=== PATIENT | male | born 1960 | race Caucasian/White ===

== ENCOUNTER 2023-01-08 05:29 | Observation (INO) ==
--- NOTE | 2022-12-11 12:37 | PAT Medication Instructions ---
Medication Instructions Date of Service December 11, 2022 Home Medications amantadine HCl 100 mg capsule 100 mg PO TID carbidopa 25 mg-levodopa 100 mg tablet 1 tab PO QID pramipexole 1 mg tablet (Mirapex) 0.5 mg PO QID naproxen sodium 220 mg tablet (Aleve) 220 mg PO BID PRN Pain selegiline HCl 5 mg capsule 5 mg PO BID STOP taking 2 weeks before surgery naproxen sodium 220 mg tablet (Aleve) 220 mg PO BID PRN Pain selegiline HCl 5 mg capsule 5 mg PO BID ( must be stopped two weeks prior to surgery- please ask prescriber if this is acceptable) Take morning of surgery With a small sip of water, OTHERWISE NOTHING TO EAT OR DRINK AFTER MIDNIGHT: amantadine HCl 100 mg capsule 100 mg PO TID carbidopa 25 mg-levodopa 100 mg tablet 1 tab PO QID pramipexole 1 mg tablet (Mirapex) 0.5 mg PO QID Take evening before surgery amantadine HCl 100 mg capsule 100 mg PO TID carbidopa 25 mg-levodopa 100 mg tablet 1 tab PO QID pramipexole 1 mg tablet (Mirapex) 0.5 mg PO QID Other Notes If you have any questions please call us at [phone] or [phone] or [phone] or [phone]
--- NOTE | 2022-12-17 09:42 | Anesthesiology Consultation ---
Date of Service December 17, 2022 Assessment & Plan (1) Encounter for pre-operative examination: Chart Review Chart Review: Acceptable Risk for Surgery and Patient seen in Pre Admission Testing Pt in Parkinson study- on 12/22/22- patient having spinal tap done (wanted anesthesia to be aware) - Due to Parkinson's disease- patient is not an ideal OPJ candidate (currently scheduled as 23 hour obs) Per PAT appt on 12/17/22, patient recently in [place]- returned 12/13/22. Pt is vaccinated for Covid. Will leave to surgeon's discretion if preop Covid testing needed. Educated on importance of using Covid precautions one week prior to surgery PCP clearance request 11/27/2022 = "Yes" patient is medically cleared for surgery Consults Requested none Teaching & Discussion Pre-Anesthesia Teaching/Discussion Notes: Instructed NPO after midnight before surgery,except medications with 15 cc of water. Medication instructions provided according to the PAT guidelines. History Surgery Operation Date: 01/08/23 07:00 Proposed Procedures p Left Total Hip Arthroplasty - Rashard Villalba MD Height/Weight Height: 6 ft 1 in Weight: 76.2 kg Allergies Allergy/AdvReac Type Severity Reaction Status Date / Time No Known Allergies Allergy Verified 12/09/22 13:36 Medications Home Medications Medication Instructions Recorded Confirmed Last Taken amantadine HCl 100 mg capsule 100 mg PO TID 02/06/22 12/09/22 Unknown carbidopa 25 mg-levodopa 100 mg 1 tab PO QID 02/06/22 12/09/22 Unknown tablet pramipexole 1 mg tablet (Mirapex) 0.5 mg PO QID 02/06/22 12/09/22 Unknown naproxen sodium 220 mg tablet 220 mg PO BID PRN Pain 12/09/22 12/09/22 Unknown (Aleve) selegiline HCl 5 mg capsule 5 mg PO BID 12/09/22 12/09/22 Unknown Past Medical History Medical History History of COVID-19 home test positive - mild cold symptoms. No current issues Lipoma of flank Lipoma of left upper extremity Osteoarthritis Parkinson disease follows with Neurology Dr [place] [facility] stable - has tremors, stiffness Sleep apnea CPAP at night Exercise / Class Metabolic Activity II 4-5 Yardwork/Stairs/Walk up hill (one flight of stairs - no chest pain or SOB ) Past Family History Family History Father Cancer Other No family history of adverse response to anesthesia Past Surgical History Surgical History H/O colonoscopy History of appendectomy (1976) Past Anesthesia History No Hx of Anesthesia Complications and No Family Hx of Anesthesia Complications History of PONV No Hx of PONV and No Hx of Motion Sickness Social History Smoking Status: Never smoker Do You Dip or Chew Tobacco: No Hx Alcohol Use: Yes Alcohol type: beer and wine alcohol intake frequency: a few times a month Hx Substance Use: No Review of Systems Patient denies chest pain, shortness of breath, dyspnea on exertion, reflux, cough, wheezing, palpitations. No hx of seizures, stroke, DC, apnea/snoring. No hx of blood clots or blood transfusions Physical Exam Vital Signs VITALS BP 117/70 P 80 TEMP 97.5 SP02 97% RESP 16 Constitutional no acute distress ENMT Mouth: no TMJ clicking Thyromental Distance: > or= 3.5 Finger Breadths (4.0) Mallampati Class: II Missing side teeth [place] to molar Neck + limited neck extension Respiratory normal respiratory effort; no respiratory distress Auscultation: lungs clear to auscultation bilaterally; no wheezes Cardiovascular Rate/Rhythm: regular rate and regular rhythm Heart Sounds: no murmur Vessels: no carotid bruit Musculoskeletal Spine: no pain with cervical ROM Extremities: extremities normal to inspection Psychiatric Orientation: alert Dysarthria - mild Lab Results Anesthesia Preop Results Results Anesthesia Widget: WBC 5.98 K/ul (4.8-10.8) 12/17/22 Hgb 16.0 g/dl (14.0-18.0) 12/17/22 Hct 46.8 % (42.0-52.0) 12/17/22 Plt 207 K/uL (130-400) 12/17/22 Na 140 mmol/L (136-145) 12/17/22 K 4.1 mmol/L (3.5-5.1) 12/17/22 Cl 105 mmol/L (98-107) 12/17/22 CO2 30 mmol/L (21-32) 12/17/22 BUN 27 mg/dl (6-23) H 12/17/22 Creat 0.91 mg/dl (0.6-1.4) 12/17/22 Glucose Level 77 mg/dl (70-99(Fasting)) 12/17/22 PT 11.1 Seconds (9.0-12.0) 12/17/22 PTT 26.8 Seconds (21.0-31.0) 12/17/22 INR 1.0 (0.9-1.1) 12/17/22 Urine Color Yellow 12/17/22 Urine Appearance Clear (Clear) 12/17/22 Urine pH 7.0 (4.5-7.5) 12/17/22 Urine Specific [place] 1.028 (1.000-1.030) 12/17/22 Urine Protein Negative (Negative) 12/17/22 Urine Glucose (UA) Negative (Negative) 12/17/22 Urine Ketones Trace (Negative) H 12/17/22 Urine Blood Trace (Negative) H 12/17/22 Urine Nitrite Negative (Negative) 12/17/22 Urine Bilirubin Negative (Negative) 12/17/22 Urine Urobilinogen Negative (Negative) 12/17/22 Urine Leukocyte Esterase Negative (Negative) 12/17/22 Urine WBC (Auto) 1-5 /hpf (0-5) 12/17/22 Urine RBC (Auto) 5-10 /hpf (0-4) H 12/17/22 Urine Hyaline Casts (Auto) 0 /lpf (0-5) 12/17/22 Urine Epithelial Cells (Auto) 5-10 /lpf (0-5) H 12/17/22 Urine Bacteria (Auto) Negative (Negative) 12/17/22 Blood Type O Positive 12/17/22 Antibody Screen NEGATIVE 12/17/22 Testing Electrocardiogram Date: 12/17/22 Findings: + NSR @ (71bpm ) Normal EKG per cardio COVID-19 Risk Screen Screening Information COVID-19 Screen Date: 12/17/22 Exposure 21 Days Family/Household +COVID Last 21 Days: No Exposure 10 Days Any COVID Exposure Last 10 Days: No Symptoms Last 10 Days Experienced COVID Sx Last 10 Days: No + COVID 0-90 Days COVID + in Last 0-90 Days: No Risk Plan COVID Risk Plan: No Risk Identified Patient Education COVID Preop Screening Education Complete: Yes
--- NOTE | 2022-12-18 13:03 | History & Physical Report ---
Date of Service December 18, 2022 Assessment & Plan (1) Osteoarthritis of left hip: Plan: PRE-OP Diagnosis: Left hip osteoarthritis Planned Procedure: Left total hip arthroplasty Plan: Patient is scheduled to undergo this procedure at the [facility] with a 23-hour observation admission with Dr. Villalba on December. Risks and complications of the procedure such as: Infection, bleeding, pain, scarring, nerve blood vessel damage, weakness, wound problems, stiffness, incomplete relief of symptoms, hardware failure, hardware loosening, wear, fracture, tendon or ligament injury, dislocation, leg length inequality, blood clots, Embolism, heart attack, stroke and were explained to the patient at her visit today. Informed consent to perform the procedure was obtained. Patient also understands risks of proceeding with surgical intervention during the COVID-19 pandemic. Currently he is asymptomatic and and has not been in contact with anyone positive for the virus recently. Patient has an appointment to meet with anesthesia later this morning and while there will obtain CBC with differential, complete metabolic panel, PT/INR, blood type and screen, urinalysis, urine culture and sensitivity, EKG, and a nasal culture for MRSA. We will obtain preoperative medical clearance from the patient's neurologist. He is scheduled to meet with his primary care provider Dr. Alberto on December 30. Patient states that he plans on doing in-home physical therapy for the first 1 to 2 weeks postoperatively with [facility]. Patient states that he will most likely elect to do outpatient physical therapy at in our PT clinic. Patient will need a walker, raised toilet seat, shower chair and a hip kit. During today's visit we reviewed the total hip packet as well as precautions. We discussed discharge planning from the hospital. I provided paperwork to obtain a handicap placard for their vehicle. We discussed lectures offered by [facility] in regards to joint replacement surgery via Zoom. I advised the patient that upon discharge from hospital we will prescribe a narcotic pain medication and anti-inflammatory. Patient will also be on an 81 mg aspirin twice daily for blood clot prevention. Patient will be scheduled for 2-week postoperative follow-up visit with myself on January 21 at 8:30 AM. At that visit we will Provide the patient with an order for outpatient physical therapy and rehab protocol. Patient verbalizes understanding of all information provided during today's visit. He thanks for the care that he received. If he has questions or concerns that should arise prior to his surgery, he will contact clinic. This chart was completed utilizing [employer] voice recognition software. Grammatical errors, random word insertions, pronoun errors, and in complete se ntences are an occasional consequence of the system. Any questions or concerns about the content, text, or information contained within the body of this dictation should be addressed directly to the physician for clarification. History of Present Illness Chief Complaint: Chief Complaint: Left hip pain Primary Care Provider: Andrew Hoover MD History of Present Illness (including history relevant to procedure): This 62-year-old male presents to the clinic today for his preoperative history and physical examination. Patient states that he has a long standing history of left hip pain that is waxed and waned for around 10 years. States that the onset was insidious without any specific type of injury. He states that many other family members have undergone joint replacement surgery and feels that there is some sort of genetic component. Patient localizes most of his pain to the groin area. He states that he has noticed that his range of motion has decreased significantly. He has been working with a management trainer to work on strengthening lower extremity in preparation for his upcoming surgery. Review Of Systems: A 12 point review of systems is performed and is unremarkable except for those things stated in the HPI and past medical history. Past Medical History: Problems: Arthritis of left hip Urge incontinence Preventative health care BPH (benign prostatic hyperplasia) MIGUEL ÁNGEL (obstructive sleep apnea) Parkinsons disease Procedure History Procedure Procedure Date Comments Ultrasound scan of bladder 07/23/2022 - Impression: Trace post void residual of 8 cc. X-ray tomography of pelvis and left hip 12/06/2021 - 1. No acute osseous pathology2. Osteoarthritis Colonoscopy 04/05/2021 - COLO to cecum, 3 mm DC polyp, hemorrhoids. ECG (electrocardiography) procedure 08/16/2019 - normal rate, rhythm, and axis; no ST-T abnormalities Colonoscopy 08/08/2014 - 6 mm adenoma, ascending colon. 3 mm reparative polyp rectum. Normal terminal ileum. Otherwise normal colonoscopy. Prep excellent. - polyp removed ECG (electrocardiography) procedure 09/27/2012 - sinus rhythmNormal ECG ECG (electrocardiography) procedure 04/13/2012 - SINUS RHYTHMNORMAL ECG Plain X-ray of left hip 04/19/2008 - Mild osteoarthritic change of both hips. The femoral heads are smooth in contour without sclerosis or collapse. APPENDECTOMY 1976 Allergies and Sensitivities: No Known Medication Allergies Current Home Meds: (Last Updated 12/17 08:16) amantadine (amantadine 100 mg oral capsule) 100 mg PO tid carbidopa-levodopa (carbidopa-levodopa 25 mg-100 mg oral tablet) 1 tab PO qid pramipexole (Mirapex 1 mg oral tablet) 0.5 mg PO qid selegiline (selegiline 5 mg oral capsule) 5 mg PO bid take one tab q 6 am and one at q 10am Allergies Allergy/AdvReac Type Severity Reaction Status Date / Time No Known Allergies Allergy Verified 12/09/22 13:36 Home Medications Medication Instructions Recorded Confirmed Type amantadine HCl 100 mg capsule 100 mg PO TID 02/06/22 12/09/22 History carbidopa 25 mg-levodopa 100 mg 1 tab PO QID 02/06/22 12/09/22 History tablet pramipexole 1 mg tablet (Mirapex) 0.5 mg PO QID 02/06/22 12/09/22 History naproxen sodium 220 mg tablet 220 mg PO BID PRN Pain 12/09/22 12/09/22 History (Aleve) selegiline HCl 5 mg capsule 5 mg PO BID 12/09/22 12/09/22 History Past Med/Surg History Medical History History of COVID-19 home test positive - mild cold symptoms. No current issues Lipoma of flank Lipoma of left upper extremity Osteoarthritis Parkinson disease follows with Neurology Dr Marks with [facility]. stable - has tremors, stiffness Sleep apnea CPAP at night Surgical History H/O colonoscopy History of appendectomy (1976) Family History Father Cancer Other No family history of adverse response to anesthesia Social History Smoking Status: Never smoker Second Hand Exposure: No; Do You Dip or Chew Tobacco: No; Hx Alcohol Use: Yes Alcohol type: beer and wine Alcohol Intake Frequency: 2-3 x/Week Hx Substance Use: No Preferred Language: Welsh Communication Ability: Effective Wash Operator Required: No Beliefs That Will Affect Care: None marital status: Current Living Situation: Spouse and Family Current Living Situation Comment: & daughter current occupational status: employed current occupation: Short How many Children do You have: 2 Feels Safe at Home: Yes Diet: regular during the past year weight has: remained stable Assistive Devices: Glasses Review of Systems All systems reviewed & are unremarkable except as noted in Subjective Physical Exam Physical Exam: Physical Exam: (relevant to the procedure, including heart and lung evaluation) General: Alert and oriented x3 with proper grooming and hygiene Eyes: Pupils are equal and reactive to light with accommodation. Extraocular movements are intact Throat: Posterior oropharynx is clear with absence of edema, erythema or exudate. Dentition is appropriate Cardiac: Regular rate and rhythm with no murmurs or gallops appreciated Lungs: Clear to auscultation throughout with no wheezing, rales or rhonchi Abdomen: Nonobese, nondistended, nontender with NABS Extremities: Left hip; flexion is limited to 110 degrees, internal rotation is limited to 5 degrees with referred pain to the groin. External rotation to 40 degrees without significant pain. Scour/impingement tests positive. Stinchfield test is positive. Logroll test not elicit any pain. Patient does experience some tenderness to palpation in the groin area. Otherwise he is neurovascular intact in the left extremity Neuro: Cranial nerves II through XII are intact no motor or sensory deficit Skin: Normal appearance no open skin areas or discharge Results & Data Diagnostic Findings Studies (relevant to the procedure): X-Ray imaging: Cross table lateral, APpelvis, and false profileviews of theleft hipobtained today and personally interpreted by me show subtle disease progression in the left hip.Near [id number] continuedcartilage losscompared toprevious imaging from 2021.
[2023-01-08] MEDS ORDERED: ACETAMINOPHEN 500 MG TAB PO SCH (06:00)
[2023-01-08] MEDS ORDERED: Scopolamine 1 MG TDSY TD SCH (06:00)
[2023-01-08] MEDS ORDERED: ROPIVACAINE 0.5% HCL/PF 150 MG, BUPIVACAINE 0.75% MPF 20 ML, EPINEPHrine 0.15 MG, Ketor... INFIL SCH (06:00)
[2023-01-08] MEDS ORDERED: CeleBREX 200 MG CAP PO SCH (06:00)
[2023-01-08] MEDS ORDERED: LR 500ML BOLUS, THEN 15ML/HR IV SCH (06:00)
[2023-01-08] MEDS ORDERED: TRANEXAMIC ACID 1,000 MG **IV Intra-op IV SCH (06:00)
[2023-01-08] MEDS ORDERED: ceFAZolin 2000MG 2,000 MG/15 ML SYR IV SCH (06:00)
[2023-01-08] MEDS ORDERED: dexAMETHasone 4 MG TAB PO SCH (06:00)
[2023-01-08] MEDS ORDERED: LR 60ML/HR IV SCH (06:00)
[2023-01-08] MEDS ORDERED: TRANEXAMIC ACID 1,000 MG **IV Pre-op IV SCH (06:00)
[2023-01-08] MEDS ORDERED: traMADol HCL 50 MG TABLET PO SCH (06:00)
[2023-01-08] MEDS ORDERED: FAMOTIDINE 20 MG TAB PO SCH (06:00)
[2023-01-08] MEDS ORDERED: ROPIVACAINE 0.5% 5 MG/ML 30 ML VIAL ONE (06:09)
[2023-01-08] MEDS ORDERED: KETAMINE 50 MG/5 ML SYRINGE ONE (06:30)
[2023-01-08] MEDS ORDERED: MIDAZOLAM HCL 1 MG/ML 2ML VIAL ONE (06:30)
[2023-01-08] MEDS ORDERED: ATROPINE SULFATE 0.1 MG/ML 10ML SYR IV PRN (06:41)
[2023-01-08] MEDS ORDERED: ePHEDrine sulfate 50 MG/ML AMP IV PRN (06:41)
[2023-01-08] MEDS ORDERED: HYDROmorphone INJ 1 MG/ML SYRINGE IV PRN (06:41)
[2023-01-08] MEDS ORDERED: ONDANSETRON INJ 2 MG/ML 2 ML VIAL IV PRN ×2 (06:41→08:45)
[2023-01-08] MEDS ORDERED: KETOROLAC 30 MG/ML VIAL IV PRN (06:41)
--- NOTE | 2023-01-08 06:53 | History & Physical Bridge Note ---
Date of Service January 08, 2023 History & Physical Bridge Note I have examined the patient, reviewed the History & Physical and in the interval since the performance of the History & Physical I have noted the following changes of clinical significance: no changes noted
[2023-01-08] MEDS ORDERED: ORTHO JOINT ANESTHETIC ONE (06:56)
[2023-01-08] MEDS ORDERED: GLYCOPYRROLATE 0.2 MG/ML VIAL ONE (07:18)
[2023-01-08] MEDS ORDERED: ONDANSETRON INJ 2 MG/ML 2 ML VIAL ONE (07:18)
[2023-01-08] MEDS ORDERED: KETOROLAC 30 MG/ML VIAL ONE (07:18)
[2023-01-08] MEDS ORDERED: PROPOFOL IV EMULSION 10 MG/ML 100 ML VIAL IV ONE (07:18)
[2023-01-08] MEDS ORDERED: LIDOCAINE 2% 2 ML VIAL/AMP(20MG/ML) INFIL ONE (07:18)
--- NOTE | 2023-01-08 08:25 | Operative Report ---
Post Operative Report Pre & Post Diagnosis Operation Date: 01/08/23 07:00 Pre-Op Diagnosis: Left Hip Osteoarthritis, Parkinson's Post-Op Diagnosis: Left Hip Osteoarthritis, Parkinson's I identified the patient and participated in the time-out.: Yes Procedure Operation Date: 01/08/23 07:00 Actual Procedures p Left Total Hip Arthroplasty(Left) - Rashard Villalba MD Surgeon Rashard Villalba MD Refinery Operator Assistant Will Borrego DO, RJ Cid PA-C, Maris Lund MS2 Estimated Blood Loss 100 Findings Consistent with Post-Op Diagnosis Specimens left femoral head Anesthesia Type Spinal MAC Complications none Disposition Disposition: Recovery Room Indications 62-year-old male with medical history significant for Parkinson disease presented to my clinic with left hip pain refractory conservative management. X-rays demonstrate [id number] disease superolateral pattern arthritis. I had a long discussion with him about the risks and benefits of surgery, alternatives to surgery, and expected outcomes. He understands that he is at elevated risk for complications because of his Parkinson's disease that could lead to a fall and subsequent fracture dislocation. After reviewing all these he elected to proceed with surgery. All questions were answered. Informed consent was signed. Description of Procedure Patient was identified in the preoperative holding area where the surgical site, left hip, was marked. A spinal anesthetic was placed, then the patient was brought back to the main operating room, placed in the operating table and moved into the lateral decubitus position. Axillary roll was placed. All bony prominences were padded. Perioperative antibiotics and tranexamic acid 1 gram IV were administered. Operative extremity was prepped and draped in the normal sterile fashion. Prior to incision a multidisciplinary timeout was called. All in the room were in agreement. We began by making an incision for a posterior approach to the hip. We dissecte d down through subcutaneous tissues to the level of the fascia. The fascia was incised in line with the incision. Charnley bow was placed. Fatty tissue was reflected posteriorly off the back of the greater trochanter to expose the piriformis and short external rotators of the hip. The piriformis and short external rotators were dissected off the posterior aspect of the hip. A box cut was made in the capsule. Inferior hip capsule was released off the femur. The femoral head was dislocated. The femoral neck cut was made at our preoperative template. The acetabulum was then exposed. The labrum was sharply excised. Contents of the cotyloid fossa were removed with electrocautery. We then began reaming at a size 8 mm less than our preoperative template. We reamed up by [address] the way up to a size 58 mm cup. This gave us good bleeding cancellus bone circumferentially. The acetabulum was then irrigated out and dried. The real [place] Gription cup was then impacted down into position with 45 degrees of lateral opening and 25 degrees of anteversion. A single cancellous bone screw was placed up into the ilium. Excellent fixation was obtained. A trial liner for a dual mobility 49 mm outer diameter femoral head was then placed. Next we turned our attention to the femur. The lateral neck was removed with a box osteotome. Intramedullary guide was used followed by the lateralizing reamer. We then reamed up to a size 5 [place] stem. We then broached all the way up to a size 5. We began trialing with a high offset neck and a +5 bipolar head. Hip was reduced. Leg lengths were symmetric. The hip was stable in extension and external rotation, and stable in the sleeper position. At 90 degrees of hip flexion the hip could be internally rotated 80 degrees without levering out of the cup. I was very happy with the stability exam. Therefore the hip was dislocated and the femoral trial was removed. The acetabulum was re-exposed, and the trial liner was removed. A metal 59/49 dual mobility liner was then impacted into the shell. The Cohen taper was checked to ensure that it had engaged which it had. The femur was re-exposed. The femoral canal was irrigated and dried. The real size 5 high offset [place] femoral stem was opened up. This was impacted down into position. It sat at the same level as the femoral trial. Therefore the 49 mm bipolar head with +5 offset was opened up, assembled on the back table, and gently impacted down onto the trunnion. The hip was atraumatically reduced. Another 1 gram of IV tranexamic acid was started prior to closure. The wound was irrigated out with sterile Betadine solution. The periarticular injection cocktail was then placed. The short external rotators, piriformis, and pos terior capsule were repaired through drill holes in the greater trochanter using #2 Vicryl. The fascia was run with a looped #1 PDS. The subcutaneous layer was closed with #1 PDS. The dermal layer was closed with 2-0 Vicryl. Zip line was used for the skin followed by a [place] dressing. A compressive dressing was then placed. The patient was then rolled supine. Leg lengths were rechecked and were symmetric. An abduction pillow was placed. Sedation was lifted and the patient was transferred to the recovery room in stable condition. Summary of implants: Depuy [place] Gription Acetabular Shell Sector Cup, 58 mm outer diameter [place] Cancellous bone screw, 6.5 x 5835 mm [place] hole eliminator [place] dual mobility liner, 58/49 DePuy [place] Femoral stem with [place], 12/14 taper, size 5 high offset Bi mentum polyethylene liner 28/49 for the bipolar femoral head Biolox delta 28 mm ceramic femoral head with +5 offset Postoperative course: Patient will be admitted to the hospital from the recovery room. Patient will be weightbearing as tolerated with posterior hip precautions. Aspirin for DVT prophylaxis I attest to the content of the Intraoperative Record and any orders documented therein. Any exceptions are noted below.
[2023-01-08] MEDS ORDERED: ALUMINUM/MAGNESIUM SUSP 30 ML UDC PO PRN (08:45)
[2023-01-08] MEDS ORDERED: oxyCODONE HCL IR 5 MG TAB (IMMEDIATE RELEASE) PO PRN (08:45)
[2023-01-08] MEDS ORDERED: bisacodyL 10 MG SUPP PR PRN (08:45)
[2023-01-08] MEDS ORDERED: diphenhydrAMINE 50 MG/ML VIAL IV PRN (08:45)
[2023-01-08] MEDS ORDERED: MAGNESIUM HYDROXIDE SUSP 30 ML UDC PO PRN (08:45)
[2023-01-08] MEDS ORDERED: NALOXONE HCL 0.4 MG/1 ML VIAL/CARP IV PRN (08:45)
[2023-01-08] MEDS ORDERED: TAMSULOSIN HCL 0.4 MG CAP PO PRN (08:45)
[2023-01-08] MEDS ORDERED: METOCLOPRAMIDE HCL INJ 5 MG/ML 2 ML VIAL IV PRN (08:45)
--- NOTE | 2023-01-08 08:45 | Operative Report ---
Post Operative Report Pre & Post Diagnosis Operation Date: 01/08/23 07:00 Pre-Op Diagnosis: Left Hip Osteoarthritis Post-Op Diagnosis: Left Hip Osteoarthritis I identified the patient and participated in the time-out.: Yes Procedure Operation Date: 01/08/23 07:00 Actual Procedures p Left Total Hip Arthroplasty(Left) - Rashard Villalba MD Surgeon Rashard Villalba MD Vinyl Cutter Will Borrego DO, RJ Cid PA-C, Maris Lund MS2 Estimated Blood Loss 100 Findings Consistent with Post-Op Diagnosis Specimens femoral head Description of Procedure I was present during the entire case assisting with positioning, prepping, draping, wound retraction, wound closure, dressing and abduction pillow placement. Fellow also present. I served as an extra set of hands during the case. Please see Dr. Villalba procedure note for specifics of the case. I attest to the content of the Intraoperative Record and any orders documented therein. Any exceptions are noted below.
--- NOTE | 2023-01-08 09:48 | XRay Report ---
XR pelvis 1-2V routine CLINICAL HISTORY: In PACU - Post Surgical TECHNIQUE: A single frontal view of the pelvis was obtained. Comparison: Comparison is made to pelvis radiograph 11/18/2022 FINDINGS: Patient is status post total hip arthroplasty with expected postsurgical changes including soft tissu e swelling, and subcutaneous emphysema. No periarticular lucency or hardware fracture is seen. IMPRESSION: Expected postoperative appearance status post placement of total hip arthroplasty. ACT 112: Negative or not required by law. Electronically signed by: Matias Quick M.D. 01/08/2023 9:47 AM
--- NOTE | 2023-01-08 10:49 | Anesthesiology Progress Note ---
Date of Service January 08, 2023 Anesthesia Post Procedure Vital Signs Vital Signs: Temp Pulse Pulse Resp BP Pulse Ox O2 Del Method 01/08/23 10:35 36.5 C 66 14 104/59 L 94 Room Air 01/08/23 10:20 36.4 C L 62 16 101/55 L 95 Room Air 01/08/23 10:10 73 14 103/58 L 100 Room Air 01/08/23 10:00 36.3 C L 67 12 99/60 L 100 Nasal Cannula 01/08/23 09:50 68 12 97/54 L 100 Nasal Cannula 01/08/23 09:40 66 15 102/57 L 99 Nasal Cannula 01/08/23 09:30 63 15 97/57 L 99 Nasal Cannula 01/08/23 09:20 56 L 19 98/56 L 99 Nasal Cannula 01/08/23 09:10 73 20 99/49 L 99 Nasal Cannula 01/08/23 09:00 63 13 92/51 L 100 Nasal Cannula 01/08/23 08:50 60 15 92/57 L 100 Nasal Cannula 01/08/23 08:44 36.2 C L 77 19 99/53 L 98 Nasal Cannula 01/08/23 06:15 36.5 C 75 20 124/80 97 Room Air O2 Flow Rate 01/08/23 10:35 01/08/23 10:20 01/08/23 10:10 01/08/23 10:00 2 01/08/23 09:50 2 01/08/23 09:40 2 01/08/23 09:30 2 01/08/23 09:20 2 01/08/23 09:10 2 01/08/23 09:00 2 01/08/23 08:50 2 01/08/23 08:44 4 01/08/23 06:15 Transfer of Care Handoff Completed per policy Notes Mental Status: alert / awake / arousable Patient Amnestic to Procedure: Yes Nausea / Vomiting: adequately controlled Pain: adequately controlled Airway Patency, RR, SpO2: stable & adequate BP & HR: stable & adequate Hydration State: stable & adequate Anesthetic Complications: no major complications apparent
[2023-01-08] MEDS: SODIUM CHLORIDE 0.9% 1000ML 1,000 ML IV SCH ×2 (11:00→21:30)
[2023-01-08] MEDS: MULTIVITAMIN TAB PO SCH (11:09)
[2023-01-08] MEDS: ASPIRIN 81 MG ECTAB PO SCH ×2 (11:11→19:33)
[2023-01-08] MEDS: DOCUSATE SODIUM 100 MG CAP PO SCH ×2 (11:11→19:31)
[2023-01-08] MEDS: CARBIDOPA/LEVODOPA 25/100MG TAB PO SCH ×3 (12:35→19:32)
[2023-01-08] MEDS: PRAMIPEXOLE DIHYDROCHLO 0.5 MG TAB PO SCH ×3 (12:36→19:33)
[2023-01-08] MEDS: AMANTADINE HCL 100 MG CAPSULE PO SCH ×2 (12:36→19:33)
[2023-01-08] MEDS ORDERED: TRANEXAMIC ACID / 0.7% NACL 1,000 MG/100 ML BAG IV SCH (14:00)
[2023-01-08] MEDS: ACETAMINOPHEN 500 MG TAB PO SCH ×2 (14:28→22:26)
[2023-01-08] MEDS: ceFAZolin 2000MG 2,000 MG/15 ML SYR IV SCH ×2 (14:29→22:27)
[2023-01-08] MEDS: Scopolamine CHECK PATCH PLACEMENT SCH (14:29)
[2023-01-08] MEDS: KETOROLAC TROMETHAMINE 15 MG/ML VIAL IV SCH (17:04)
[2023-01-08] MEDS: SELEGILINE HCL 5 MG TAB PO SCH (19:32)
[2023-01-08] MEDS ORDERED: SENNA 8.6 MG TAB PO SCH (21:00)
[2023-01-09] MEDS: KETOROLAC TROMETHAMINE 15 MG/ML VIAL IV SCH ×2 (01:03→05:51)
[2023-01-09] MEDS: Scopolamine CHECK PATCH PLACEMENT SCH ×2 (01:03→07:33)
[2023-01-09] MEDS: ACETAMINOPHEN 500 MG TAB PO SCH (05:51)
[2023-01-09] MEDS: SODIUM CHLORIDE 0.9% 1000ML 1,000 ML IV SCH (06:06)
[2023-01-09 06:08] LABS: Basophils # (auto) 0.02 K/uL (0-0.2); Basophils % (auto) 0.2 %; Eosinophils # (auto) 0.01 K/uL (0-0.50); Eosinophils % (auto) 0.1 %; Hematocrit (blood only) 36.7 % (42.0-52.0); Hemoglobin 13.3 g/dl (14.0-18.0); Immature Granulocytes # (auto) 0.05 K/uL (0.01-0.20); Immature Granulocytes % (auto) 0.4 %; Lymphocytes # (auto) 1.43 K/uL (1.2-3.4); Lymphocytes % (auto) 10.8 %; Mean Corpuscular Hemoglobin 31.5 pg (25.0-34.0); Mean Corpuscular Hgb Conc 36.2 g/dL (32.0-36.0); Mean Platelet Volume 9.6 fL (9.4-12.4); Monocytes # (auto) 1.09 K/uL (0.11-0.59); Monocytes % (auto) 8.3 %; Neutrophils % (auto) 80.2 %; Platelet Count 190 K/uL (130-400); RDW Coefficient of Variation 12.4 % (11.5-14.5); RDW Standard Deviation 39.1 fL (36.4-46.3); Red Blood Count 4.22 M/uL (4.70-6.10)
[2023-01-09 06:25] LABS: BUN Creatinine Ratio 19.8 (10-20); Calcium 8.6 mg/dl (8.6-10.3); Creatinine Clr Calc Pharmacy 104.5 ml/min; Est GFR (Non-African American) 96.6 ml/min; Potassium 4.1 mmol/L (3.5-5.1)
[2023-01-09] MEDS: PRAMIPEXOLE DIHYDROCHLO 0.5 MG TAB PO SCH (07:30)
[2023-01-09] MEDS: AMANTADINE HCL 100 MG CAPSULE PO SCH (07:31)
[2023-01-09] MEDS: ASPIRIN 81 MG ECTAB PO SCH (07:31)
[2023-01-09] MEDS: CARBIDOPA/LEVODOPA 25/100MG TAB PO SCH (07:31)
[2023-01-09] MEDS: SELEGILINE HCL 5 MG TAB PO SCH (07:33)
[2023-01-09] MEDS: DOCUSATE SODIUM 100 MG CAP PO SCH (07:33)
[2023-01-09] MEDS: MULTIVITAMIN TAB PO SCH (07:33)
[2023-01-09] MEDS ORDERED: dexAMETHasone 4 MG TAB PO SCH (08:00)
--- NOTE | 2023-01-09 08:41 | Orthopedic Progress Note ---
Date of Service January 09, 2023 Assessment & Plan (1) S/P total hip arthroplasty: Plan Weightbearing as tolerated with walker assistance PT/OT Keep Silverlon dressing in place Ice with easy wrap Abduction pillow use x6 weeks DVT prophylaxis with aspirin and BRIGIDO stockings Pain control with p.o. medication Plan is to discharge home later this morning with in-home physical therapy for the first 2 weeks. Follow-up at [facility] orthopedics as previously scheduled. With questions contact our clinic at [phone] Admission and Anticipated Discharge Date Admission Date: January 08, 2023 Subjective This 62-year-old male is day 1 status post left total hip arthroplasty. Patient states that he is doing very well. He states his pain is well controlled with p.o. pain medication. He states that he has been able to ambulate around the room without difficulty with the assistance of his walker. He is hopeful that he will be discharged home later this morning. Currently he denies any chest pain, shortness of breath, fever, chills, sweats, fatigue, lethargy, nausea, vomiting, diarrhea or difficulty voiding. He also has no complaint of numbness or tingling in the left lower extremity. Review of Systems Review of Systems: All systems reviewed & are unremarkable except as noted in Subjective Physical Exam Physical Exam: Left hip: Dressing was removed. Silverlon is clean dry and intact and left in place. Patient is able to easily perform active straight leg raise test. He is able to transition from a seated to a standing position without difficulty and with the assistance of his walker. He tolerates light passive hip flexion to 90 degrees. He does experience slight twinges of pain with light passive internal and external rotation near the incision site. He is able to actively dorsi and plantarflex foot without issue. He is neurovascularly intact in the left lower extremity. Quad strength is 4+ out of 5. Results & Data Vital Signs (Past 12 Hours) Vital Signs Temp Pulse Resp BP Pulse Ox O2 Del Method 01/09/23 06:16 36.6 C 63 16 111/71 99 Room Air 01/09/23 03:00 36.5 C 60 14 124/76 96 Room Air 01/08/23 22:49 36.8 C 63 16 102/68 96 Room Air Diagnostic Findings Laboratory Results WBC 13.20 K/ul (4.8-10.8) H 01/09/23 05:24 RBC 4.22 M/uL (4.70-6.10) L 01/09/23 05:24 Hgb 13.3 g/dl (14.0-18.0) L 01/09/23 05:24 Hct 36.7 % (42.0-52.0) L 01/09/23 05:24 MCV 87.0 fL (80.0-100.0) 01/09/23 05:24 MCH 31.5 pg (25.0-34.0) 01/09/23 05:24 MCHC 36.2 g/dL (32.0-36.0) H 01/09/23 05:24 RDW Std Deviation 39.1 fL (36.4-46.3) 01/09/23 05:24 RDW Coeff of Akshat 12.4 % (11.5-14.5) 01/09/23 05:24 Plt Count 190 K/uL (130-400) 01/09/23 05:24 MPV 9.6 fL (9.4-12.4) 01/09/23 05:24 Immature Gran % (Auto) 0.4 % 01/09/23 05:24 Neut % (Auto) 80.2 % 01/09/23 05:24 Lymph % (Auto) 10.8 % 01/09/23 05:24 Frio % (Auto) 8.3 % 01/09/23 05:24 Eos % (Auto) 0.1 % 01/09/23 05:24 Baso % (Auto) 0.2 % 01/09/23 05:24 Neut # (Auto) 10.60 K/uL (1.40-6.50) H 01/09/23 05:24 Lymph # (Auto) 1.43 K/uL (1.2-3.4) 01/09/23 05:24 Frio # (Auto) 1.09 K/uL (0.11-0.59) H 01/09/23 05:24 Eos # (Auto) 0.01 K/uL (0-0.50) 01/09/23 05:24 Baso # (Auto) 0.02 K/uL (0-0.2) 01/09/23 05:24 Immature Gran # (Auto) 0.05 K/uL (0.01-0.20) 01/09/23 05:24 Sodium 137 mmol/L (136-145) 01/09/23 05:24 Potassium 4.1 mmol/L (3.5-5.1) 01/09/23 05:24 Chloride 107 mmol/L (98-107) 01/09/23 05:24 Carbon Dioxide 25 mmol/L (21-32) 01/09/23 05:24 Anion Gap 5 (3-11) 01/09/23 05:24 BUN 16 mg/dl (6-23) 01/09/23 05:24 Creatinine 0.81 mg/dl (0.6-1.4) 01/09/23 05:24 Est Cr Clr Drug Dosing 104.5 ml/min 01/09/23 05:24 Est GFR ( Amer) 112.0 ml/min 01/09/23 05:24 Est GFR (Non-Af Amer) 96.6 ml/min 01/09/23 05:24 BUN/Creatinine Ratio 19.8 (10-20) 01/09/23 05:24 Glucose 131 mg/dl (70-99(Fasting)) H 01/09/23 05:24 Calcium 8.6 mg/dl (8.6-10.3) 01/09/23 05:24 SARS-CoV-2, RNA, NAAT NEGATIVE (NEGATIVE) 01/08/23 Unknown Impressions Pelvis X-Ray 01/08/23 08:45 XR pelvis 1-2V routine CLINICAL HISTORY: In PACU - Post Surgical TECHNIQUE: A single frontal view of the pelvis was obtained. Comparison: Comparison is made to pelvis radiograph 11/18/2022 FINDINGS: Patient is status post total hip arthroplasty with expected postsurgical changes including soft tissue swelling, and subcutaneous emphysema. No periarticular lucency or hardware fracture is seen. IMPRESSION: Expected postoperative appearance status post placement of total hip arthroplasty. ACT 112: Negative or not required by law. Electronically signed by: Matias Quick M.D. 01/08/2023 9:47 AM
--- NOTE | 2023-01-09 08:48 | Discharge Summary ---
Date of Service January 09, 2023 Admission HPI Per Admitting Provider History of Present Illness (including history relevant to procedure): This 62-year-old male presents to the clinic today for his preoperative history and physical examination. Patient states that he has a long standing history of left hip pain that is waxed and waned for around 10 years. States that the onset was insidious without any specific type of injury. He states that many other family members have undergone joint replacement surgery and feels that there is some sort of genetic component. Patient localizes most of his pain to the groin area. He states that he has noticed that his range of motion has d ecreased significantly. He has been working with a certified personal chef to work on strengthening lower extremity in preparation for his upcoming surgery. Review Of Systems: A 12 point review of systems is performed and is unremarkable except for those things stated in the HPI and past medical history. Past Medical History: Problems: Arthritis of left hip Urge incontinence Preventative health care BPH (benign prostatic hyperplasia) MIGUEL ÁNGEL (obstructive sleep apnea) Parkinsons disease Procedure History Procedure Procedure Date Comments Ultrasound scan of bladder 07/23/2022 - Impression: Trace post void residual of 8 cc. X-ray tomography of pelvis and left hip 12/06/2021 - 1. No acute osseous pathology2. Osteoarthritis Colonoscopy 04/05/2021 - COLO to cecum, 3 mm DC polyp, hemorrhoids. ECG (electrocardiography) procedure 08/16/2019 - normal rate, rhythm, and axis; no ST-T abnormalities Colonoscopy 08/08/2014 - 6 mm adenoma, ascending colon. 3 mm reparative polyp rectum. Normal terminal ileum. Otherwise normal colonoscopy. Prep excellent. - polyp removed ECG (electrocardiography) procedure 09/27/2012 - sinus rhythmNormal ECG ECG (electrocardiography) procedure 04/13/2012 - SINUS RHYTHMNORMAL ECG Plain X-ray of left hip 04/19/2008 - Mild osteoarthritic change of both hips. The femoral heads are smooth in contour without sclerosis or collapse. APPENDECTOMY 1976 Allergies and Sensitivities: No Known Medication Allergies Current Home Meds: (Last Updated 12/17 08:16) amantadine (amantadine 100 mg oral capsule) 100 mg PO tid carbidopa-levodopa (carbidopa-levodopa 25 mg-100 mg oral tablet) 1 tab PO qid pramipexole (Mirapex 1 mg oral tablet) 0.5 mg PO qid selegiline (selegiline 5 mg oral capsule) 5 mg PO bid take one tab q 6 am and one at q 10am Admission Exam Per Admitting Provider Physical Exam: (relevant to the procedure, including heart and lung evaluation) General: Alert and oriented x3 with proper grooming and hygiene Eyes: Pupils are equal and reactive to light with accommodation. Extraocular movements are intact Throat: Posterior oropharynx is clear with absence of edema, erythema or exudate. Dentition is appropriate Cardiac: Regular rate and rhythm with no murmurs or gallops appreciated Lungs: Clear to auscultation throughout with no wheezing, rales or rhonchi Abdomen: Nonobese, nondistended, nontender with NABS Extremities: Left hip; flexion is limited to 110 degrees, internal rotation is limited to 5 degrees with referred pain to the groin. External rotation to 40 degrees without significant pain. Scour/impingement tests positive. Stinchfield test is positive. Logroll test not elicit any pain. Patient does experience some tenderness to palpation in the groin area. Otherwise he is neurovascular intact in the left extremity Neuro: Cranial nerves II through XII are intact no motor or sensory deficit Skin: Normal appearance no open skin areas or discharge Principal Diagnosis Left hip osteoarthritis Discharge Exam Left hip: Dressing was removed. Silverlon is clean dry and intact and left in place. Patient is able to easily perform active straight leg raise test. He is able to transition from a seated to a standing position without difficulty and with the assistance of his walker. He tolerates light passive hip flexion to 90 degrees. He does experience slight twinges of pain with light passive internal and external rotation near the incision site. He is able to actively dorsi and plantarflex foot without issue. He is neurovascularly intact in the left lower extremity. Quad strength is 4+ out of 5. Discharge Data Allergies Allergy/AdvReac Type Severity Reaction Status Date / Time No Known Allergies Allergy Verified 01/08/23 05:46 Procedures Performed Operation Date: 01/08/23 07:00 Actual Procedures p Left Total Hip Arthroplasty(Left) - Rashard Villalba MD Hospital Course (1) S/P total hip arthroplasty: Plan Patient had an uneventful overnight stay following total hip arthroplasty. He is doing very well this morning. He is very pleased with the results of the surgery. He is anxious to be discharged home later this morning after completing PT and OT. Plan is to discharge home with in-home physical therapy for the first 2 weeks for transitioning to outpatient therapy after his 2-week postoperative follow-up visit. Weightbearing as tolerated with walker assistance PT/OT Keep Silverlon dressing in place Ice with easy wrap Abduction pillow use x6 weeks DVT prophylaxis with aspirin and BRIGIDO stockings Pain control with p.o. medication Plan is to discharge home later this morning with in-home physical therapy for the first 2 weeks. Follow-up at [facility] orthopedics as previously scheduled. With questions contact our clinic at [phone] Total Time Total Time Spent Total Time Spent (In Minutes): 20 mins Discharge Plan Discharge Items Patient Disposition: Home - Home Health Services Reason For Visit: Left Hip Osteoarthritis Discharge Diagnosis: Left Hip Osteoarthritis Activity: As commented below Lifting: None Bathing: Keep incision dry Bathing Comment: May shower tomorrow Sexual Activity: Wait until after follow-up appointment Exercise/Sports: Wait until after follow-up appointment Driving/Machine Use: No driving until cleared by social media specialist Weightbearing Comment: as tolerated with walker assistance Non-emergency contact: Surgeon Call non-emergency contact if: you have any medication questions, your pain is not controlled, your temperature is above 101.5, your wound has increased drainage and your wound pain has increased Follow-up/Referrals: Chirag Cid PA-C [Physician Laundry Operator Wash Room] - 01/21/23 8:30 am Andrew Hoover MD [Primary Care Provider] - Diet: Regular Addtl Attending Provider Instructions: Post-operative Instructions Dear Patient and Family/Friends, Before you are discharged from the hospital, it is important to know what to expect when you get home after surgery. To that end, we have created this sheet of discharge instructions which covers many commonly asked questions. Make sure you go through this sheet in its entirety with your nurse before you are discharged. Please note that we will go over the specifics of your surgery and recovery when you return for your first post-operative visit. Sincerely, Dr. Villalba Medications 1. Oxycodone 5 mg: take 1-2 tabs every 4-6 hours as needed for post operative pain. This will be sent to your pharmacy. 2. Diclofenac Sodium 75 mg: take 1 tab twice daily for 30 days post operatively. This will also be sent to your pharmacy with 1 refill. 3. Aspirin 81 mg: take one tab twice daily for 30 days post operatively for blood clot prevention. Please purchase 4. Extra Strength Tylenol 500 mg: take 2 tabs every 6-8 hours as needed for additional pain relief. Please purchase. Pain Expect to be in a fair amount of pain after surgery. Remember, our goal is not to eliminate your pain, but to make it tolerable. It is a good idea to stay ahead of your pain by taking the medications you were prescribed once you get home. Typically, the pain starts improving 3-7 days after surgery. You should start weaning off the narcotic pain medication (oxycodone, hydrocodone, hydromorphone, morphine) as soon as your pain improves. Please call our office if your pain is not adequately controlled. Ice Ice your operative site at least 5 times a day for 15-30 minutes at a time. Make sure you have a thin cloth between the ice or cooling unit and your skin to prevent schaefer bite. This is especially important if you received a nerve block. Continue icing your operative site for the first 5-7 days after surgery, then as needed. Diet/Nausea/Vomiting Start by drinking clear liquids and eating crackers. If you can tolerate this, then you may resume your normal diet. If you feel nauseated or vomit, take Zofran/ondansetron (if prescribed). Please call our office if you have intractable nausea or vomiting, or, if after hours, you may go to the Emergency Room for help. Constipation Constipation is a common side effect of narcotic pain medication. If you have not had a bowel movement within 2 days after surgery, we recommend purchasing an over the counter laxative such as Milk of Magnesia, Dulcolax, or Miralax from a local pharmacy, and taking it as instructed. Call our clinic if any questions. Nerve block The anesthesia team sometimes places a nerve block to help with post-operative pain control. This results in significant numbness and inability to move the extremity. The nerve block usually wears off in 8-12 hours, but sometimes can last up to 24 hours. Please call our office if you are still unable to move your extremity after 24 hours, unless you received a pain pump to take home. Nerve blocks typically wear off quickly, so start taking pain medication as soon as you start feeling soreness near your surgical site. Weight bearing and Range of Motion. Do not bear any weight through your operative extremity immediately after surgery. If you had upper extremity surgery, do not lift anything with that arm. If you are in a knee brace, keep it locked in place until your follow-up. We will discuss your weight bearing, range of motion, and lifting restrictions in detail at your first post-operative appointment. Continuous Passive Motion (CPM) Machine If you were prescribed a CPM machine, it will start after your first post- operative appointment, at which time we will give you instructions on the range of motion settings and duration of treatment Physical therapy You will be given a prescription for physical therapy or occupational therapy at your first post-operative appointment. Typically, patients start therapy within 1 week of surgery Wound care and showering We will inspect your wound at your first post-operative visit, and may do a dressing change at that time. Most patients will be in a water-proof dressing that is removed 14 days after surgery. It is normal to see some dried blood on the dressing. Do not remove your dressing, paper strips or sutures yourself unless you are given permission. Showering is allowed the day after surgery. Do not scrub or remove any dressings. The wound should not be submerged underwater (i.e. in a bathtub or pool) until 4 weeks after surgery BRIGIDO stockings If you were given white stockings, these are to be worn at all times except to shower (on both legs) for the first 2 weeks after surgery. Driving You may not drive while taking narcotic pain medication or while in a cast, splint, sling or brace. You, the patient, need to make the final determination about when you are safe to drive, however, the earliest you may consider driving after surgery is below: Hand/Wrist/Elbow Surgery: 3 days Shoulder Surgery: 2 weeks Hip,/Knee/Ankle Surgery: 4 weeks Fracture repair: 6 weeks Return to Work Your return to work depends on what surgery was done and what type of work you do. Please bring any paperwork your employer needs completed to your first post-operative visit. Also, bring a description of your job duties, as this helps us to understand what risks you may face at work. Travel Avoid long distance travel (greater than 1 hour) in airplanes and cars for the first 6 weeks after surgery. If you must travel, you need to have a Doppler ultrasound done before you travel to rule out a blood clot in your legs. Follow-up You should have a follow-up appointment already scheduled 1-2 days after surgery. If not, please contact our office to make this appointment before you leave the hospital. When to call the office It is normal to have swelling and bruising in the limb that was operated on. This will improve with time. It is also normal to have fevers for the first 2 days after surgery. Reasons you should call your doctor include: Uncontrolled pain; Nausea, vomiting, or constipation that does not improve with medication; Fevers over 101.5, chills, sweats; Drainage or bleeding from the wound; Foul odor; Spreading areas of redness; Any other concerns Pending Studies at Discharge: No Stand-Alone Forms: My [facility] Medications and DC Order Prescriptions: New acetaminophen [Tylenol Extra Strength] 500 mg Tablet 1,000 mg PO Q8 30 Days Qty: 180 0RF aspirin 81 mg Tablet,Delayed Release (Dr/Ec) 81 mg PO BID 30 Days Qty: 60 0RF oxycodone 5 mg Tablet 5 - 10 mg PO Q4H PRN (Reason: Post op pain control) Qty: 28 0RF diclofenac sodium 75 mg tablet,delayed release (DR/EC) 75 mg PO BID 30 Days Qty: 60 0RF Continued amantadine HCl 100 mg capsule 100 mg PO TID pramipexole [Mirapex] 1 mg tablet 0.5 mg PO QID carbidopa-levodopa 25-100 mg tablet 1 tab PO QID selegiline HCl 5 mg Capsule 5 mg PO BID Rx Instructions: administer with breakfast and lunch Discontinued naproxen sodium [Aleve] 220 mg Tablet 220 mg PO BID PRN (Reason: Pain) Admission Data Admit Date/Time: 01/08/23 08:45 Attending Provider: Rashard Villalba Admit Provider: Rashard Villalba Primary Care Provider: Andrew Hoover Other Providers: [facility]
[2023-01-09] MEDS ORDERED: CeleBREX 200 MG CAP PO SCH (21:00)
== END 2023-01-09 10:32 | disposition home health service (06) ==
LOC: 3E 05:29 → ASU 05:29